=== PATIENT | male | born 1985 | race Two or more races ===

== ENCOUNTER 2020-11-01 09:58 | Emergency (ER) | payer OTHER ==
[~2020-11-01] VITALS: Ht 190.5 cm; Wt 59.0 kg
--- NOTE | 2020-11-01 10:00 | NUR ---
Agitates/Restless. Verbally Obnoxious/cussing using foul languege screaming at top of his lungs. Escorted by DAYNE [id number]
--- NOTE | 2020-11-01 10:08 | NUR ---
IV LINE ESTABLISHED BLOOD DRAWN AND SENT TO LAB.
--- NOTE | 2020-11-01 10:15 | NUR ---
URINE SPECIMEN COLLECTED AND SENT TO LAB.
[2020-11-01] MEDS ORDERED: LORAZEPAM INJ 2 MG/ML VIAL ONE (10:24)
[2020-11-01] MEDS ORDERED: IV NS 0.9% 500 ML BAG IV ONE (10:30)
[2020-11-01] MEDS ORDERED: LORAZEPAM INJ 2 MG/ML VIAL IV ONE (10:30)
--- NOTE | 2020-11-01 11:14 | NUR ---
Patient discharged in [employer] custody in stable condition. Written and verbal after care instructions given. Patient verbalizes understanding of instruction.
[2020-11-01 11:15] VITALS: BP 111/58
== END 2020-11-01 11:15 ==
LOC: ER 10:04
DX: Z02.89 Encounter for other administrative examinations (principal)
CPT/HCPCS: 96361; 96374; 99283; J2060; J7030